=== PATIENT | female | born 1955 | race Caucasian/White ===

== ENCOUNTER 2020-08-16 17:17 | Inpatient (IN) | payer OTHER ==
[~2020-08-16] VITALS: Ht 154.9 cm; Wt 58.1 kg
== END 2020-08-19 10:06 | disposition home or self-care (01) | DRG 445 ==
LOC: ER 17:17 → SEC-K 23:16 → SURG 23:16
PROVIDERS: ADMIT Internal Medicine; ATTEND Internal Medicine
PROC: BF37ZZZ Magnetic Resonance Imaging (MRI) of Pancreas (ICD-10-PCS; principal; 2020-08-16)
PROC: BW40ZZZ Ultrasonography of Abdomen (ICD-10-PCS; 2020-08-17)
PROC: BW21YZZ Computerized Tomography (CT Scan) of Abdomen and Pelvis using Other Contrast (ICD-10-PCS; 2020-08-18)
DX: K83.1 Obstruction of bile duct (principal); C22.1 Intrahepatic bile duct carcinoma; Z20.822 Contact with and (suspected) exposure to COVID-19